=== PATIENT | male | born 1965 | race African-American/Black ===

== ENCOUNTER 2022-05-09 09:55 | Emergency (ER) | payer BC, MEDICAID ==
[~2022-05-09 09:55] MED LIST: CLON0.1T PO; CLON0.2T PO; FURO-151 MT; GABA-529 PO; HYDR100T26 MT; METO-293 PO; ONDA4TAB5 MT; ONDA4TAB5 PO; P20 PO; PROT40 MT; PROT40 PO
[2022-05-09 20:26] LABS: BASOPHILS % 0.8 % (0.0-2.0); HEMATOCRIT. 29.9 % (42.0-52.0); HEMOGLOBIN. 9.5 g/dL (14.0-18.0); LYMPHOCYTES % 19.9 % (20.0-50.0); MEAN CORPUSCULAR HEMOGLOBIN 26.8 pg (28.0-32.0); MEAN CORPUSCULAR VOLUME 84.5 fL (80.0-94.0); MEAN PLATELET VOLUME 7.5 fl (7.4-10.4); MONOCYTES % 3.8 % (2.0-8.0); NEUTROPHILS % 74.5 % (40.0-76.0); RED BLOOD CELL COUNT 3.54 mill/uL (4.7-6.1); RED CELL DISTRIBUTION WIDTH 19.6 % (11.6-14.6)
[2022-05-09 20:28] LABS: CHLORIDE 99 mEq/L (98-107)
[2022-05-10 15:03] LABS: PLATELET 11 x1000/uL (130-400)
== END 2022-05-09 14:34 | disposition left against medical advice (07) ==
LOC: ER 09:55 → CANBEDREQ 19:56
DX: E87.70 Fluid overload, unspecified (principal); E11.22 Type 2 diabetes mellitus with diabetic chronic kidney disease; I12.0 Hypertensive chronic kidney disease with stage 5 chronic kidney disease or end stage renal disease; N18.6 End stage renal disease; Z91.15 Patient's noncompliance with renal dialysis
CPT/HCPCS: 36415; 80053; 83880; 84484; 85025; 93005; 99284